=== PATIENT | male | born 1945 | race Two or more races ===

== ENCOUNTER 2023-09-12 17:57 | Emergency (ER) | payer OTHER ==
[~2023-09-12] VITALS: Ht 170.2 cm; Wt 79.4 kg
[2023-09-12] MEDS ORDERED: DOXAZOSIN MESYLA2 MG PO (18:01)
[2023-09-12] MEDS ORDERED: FLUCONAZOLE100 MG PO (20:18)
== END 2023-09-12 21:09 | disposition home or self-care (01) ==
LOC: ER 17:58
DX: B35.6 Tinea cruris (principal)